=== PATIENT | female | born 1990 | race Hispanic/Latino ===

== ENCOUNTER 2017-04-14 10:11 | Emergency (ER) | payer OTHER ==
[2017-04-14 10:32] LABS: Bilirubin Negative (Negative); Blood, Urine Negative (Negative); Clarity CLEAR (Clear); Glucose, Urine (Dipstick) Negative (Negative); Leukocyte Negative (Negative); Nitrite Negative (Negative); Protein, Urine (Dipstick) Trace mg/dL (Neg-Trace); pH, Urine 6.5 (5.0-9.0)
[2017-04-14 10:43] LABS: #Monocytes 1.1 thou/uL (0.11-0.59); #Neutrophils 7.8 thou/uL (1.40-6.50); %Basophils 0.1 % (0.0-1.0); %Eosinophils 0.3 % (0.0-10.0); %Monocytes 10.8 % (0.0-10.0); %Neutrophils 78.8 % (42.0-75.0); Hemoglobin 12.5 g/dL (12.0-16.0); Mean Corpuscular HGB CONC 33.8 g/dL (32.0-36.0); Mean Corpuscular Hemoglobin 34.5 pg (27.0-31.0); Mean Platelet Volume 6.9 fL (7.4-10.4); Platelet Count 171 thou/uL (130-400); RBC Distribution Width 11.6 % (11.5-14.5); Red Blood Cell (RBC) Count 3.63 mill/uL (4.20-5.40); White Blood Cell (WBC) Count 9.9 thou/uL (4.8-10.8)
[2017-04-14 10:59] LABS: ALT (SGPT) 15 U/L (8-55); AST (SGOT) 17 U/L (5-34); Albumin 4.3 g/dL (3.5-5.0); Alkaline Phosphatase 41 U/L (40-150); Anion Gap 7 mmol/L (10-20); BUN (Urea Nitrogen) 8 mg/dL (7.0-18.7); Bilirubin, Total 1.4 mg/dL (0.2-1.2); Calc. Creatinine Clearance 0 mL/min (70-130); Calcium 9.3 mg/dL (7.8-10.44); Carbon Dioxide 28 mmol/L (22-29); Chloride 104 mmol/L (98-107); Estimated GFR-MDRD Greater than 90; Globulin 3.1 g/dL (2.4-3.5); Glucose 96 mg/dL (70-105); Protein, Total 7.4 g/dL (6.0-8.3); Sodium 135 mmol/L (136-145)
[2017-04-14] MEDS ORDERED: Ketorolac Tromethamine 30 MG/ML VIAL ONE (11:03)
[2017-04-14 12:09] LABS: BHCG - Serum Negative (NEGATIVE); Pregs Control Background? CLEAR/WHITE (CLR/WHITE); Pregs Control Bar Appear? YES (CONTROL BAR)
--- NOTE | 2017-04-14 12:50 | ULT ---
ULTRASOUND PELVIC ULTRASOUND TRANSVAGINAL DOPPLER DUPLEX: 04/14/2017 HISTORY: Left-sided pelvic pain in a 26-year-old female. TECHNIQUE: Transabdominal transducer used to evaluate intrapelvic contents using the urinary bladder as an acous tic window. Endovaginal transducer used to visualize intrapelvic contents in greater detail. Color fl ow Doppler and Pulsed Doppler spectral waveform analysis of ovaries. FINDINGS: Uterus: 7.5 x 3 x 4 cm Endometrial stripe: 0.8 cm (8 mm) Right ovary: 2 x 3.5 x 2 cm Left ovary: 5 x 2.5 x 2 cm Uterine leiomyoma (fibroid): None. Blood flow in both ovaries: Present. Ovarian cyst (defined as 2 cm or greater): 2 cm left ovarian slightly exophytic cyst. Free fluid in the cul-de-sac: None. IMPRESSION: A 2 cm left ovarian cyst. KENNA Posadas POS: [facility]
[2017-04-19 20:07] LABS: Chlamydia by PCR Not Detected (NotDetected); GC by PCR Not Detected (NotDetected)
== END 2017-04-14 13:43 | disposition home or self-care (01) ==
LOC: ERS 10:11
DX: N83.202 Unspecified ovarian cyst, left side (principal)
CPT/HCPCS: 36415; 76856; 80053; 81003; 84703; 85025; 87480; 87491; 87510; 87591; 87660; 96374; J1885

== ENCOUNTER 2017-04-28 20:12 | Inpatient (IN) | payer OTHER ==
[~2017-04-28 20:12] MED LIST: Heparin 1,000 UNITS/ML VIAL ONE; ISOVUE-370 76%-LOCM 1 ML ONE; Iopamidol 370 76% 50 ML VIAL FS ONE
[2017-04-28] MEDS ORDERED: Acetaminophen 500 MG TAB ONE (20:49)
[2017-04-28 20:50] LABS: Bilirubin Negative (Negative); Blood, Urine Large (Negative); Clarity CLEAR (Clear); Glucose, Urine (Dipstick) Negative (Negative); Leukocyte Negative (Negative); Nitrite Negative (Negative); Protein, Urine (Dipstick) 30 mg/dL (Neg-Trace); Specific Gravity, Urine 1.012 (1.002-1.036); pH, Urine 8.5 (5.0-9.0)
[2017-04-28 20:52] LABS: Bacteria/HPF Rare-Few HPF (None Seen); Hyaline Casts/LPF 0-3 HYALINE CAST LPF (0-3 Hyaline)
[2017-04-28 21:20] LABS: #Eosinphils 0.1 thou/uL (0.0-0.7); #Lymphocytes 0.9 thou/uL (1.20-3.40); #Monocytes 0.9 thou/uL (0.11-0.59); #Neutrophils 12.5 thou/uL (1.40-6.50); %Basophils 0.1 % (0.0-1.0); %Lymphocytes 5.9 % (21.0-51.0); %Monocytes 6.2 % (0.0-10.0); %Neutrophils 86.7 % (42.0-75.0); Hemoglobin 10.6 g/dL (12.0-16.0); Mean Corpuscular HGB CONC 34.1 g/dL (32.0-36.0); Mean Corpuscular Hemoglobin 33.8 pg (27.0-31.0); Mean Corpuscular Volume 99.4 fl (81.0-99.0); Mean Platelet Volume 5.7 fL (7.4-10.4); Platelet Count 469 thou/uL (130-400); RBC Distribution Width 12.3 % (11.5-14.5); Red Blood Cell (RBC) Count 3.13 mill/uL (4.20-5.40); White Blood Cell (WBC) Count 14.4 thou/uL (4.8-10.8)
[2017-04-28 21:42] LABS: ALT (SGPT) 14 U/L (8-55); AST (SGOT) 10 U/L (5-34); Alkaline Phosphatase 95 U/L (40-150); Anion Gap 13 mmol/L (10-20); BUN (Urea Nitrogen) 8 mg/dL (7.0-18.7); Bilirubin, Total 0.6 mg/dL (0.2-1.2); CK (CPK) 14 U/L (29-168); Calc. Creatinine Clearance 0 mL/min (70-130); Calcium 8.5 mg/dL (7.8-10.44); Carbon Dioxide 25 mmol/L (22-29); Chloride 101 mmol/L (98-107); Estimated GFR-MDRD Greater than 90; Glucose 104 mg/dL (70-105); Lipase 12 U/L (8-78); Potassium 3.7 mmol/L (3.5-5.1); Sodium 135 mmol/L (136-145)
[2017-04-28 21:49] LABS: Pregnancy Test - Urine (BHCG) Negative (Negative); Pregu Control Background? CLEAR/WHITE (CLR/WHITE); Pregu Control Bar Appear? YES (CONTROL BAR); Specific Gravity 1.012 (1.002-1.036)
[2017-04-28] MEDS ORDERED: Ondansetron HCl/PF 4 MG/2 ML Vial ONE (22:40)
[2017-04-28] MEDS ORDERED: Morphine 2 MG/ML SYRINGE ONE (22:40)
[2017-04-28] MEDS ORDERED: Meropenem 1 GM in Sterile Water 20 ML SLOW IVP SCH (23:00)
[2017-04-28] MEDS ORDERED: Ondansetron HCl/PF 4 MG/2 ML Vial IVP PRN (23:43)
[2017-04-28] MEDS ORDERED: Ondansetron ODT 4 MG TAB SL PRN (23:43)
--- NOTE | 2017-04-28 23:45 | CT ---
CT ABDOMEN AND PELVIS WITHOUT CONTRAST: 04/28/17 HISTORY: Pain and fever. COMPARISON: Pelvic ultrasound 04/14/17. FINDINGS: There is some low grade edema in the left lung base. Moderate sized pericardial effusion. There are r etroperitoneal likely fluid collections along the posterior left perirenal space posterior to the spl een as well as posterior to the left pericolic gutter extending down to the pelvis. There is moderate volume free fluid within the pelvis. There appears to be prior appendectomy. There are numerous enlarged periaortic retroperitoneal lymph nodes. Evaluation of the left ureter is limited due to the multiple lobulated fluid collections. Overall the collection measures 9.5 x 9 x al most 20 cm (trans x AP x CC). The perinephric fat appears relatively well preserved. The left adrenal gland is nodular. Right adrenal gland is unremarkable. There is some reactive thickening of the desc ending colon. IMPRESSION: Extensive retroperitoneal fluid collections along the left posterior perirenal space and posterior to the left pericolic gutter measuring approximately 10 x 8.5 x almost 20 cm. There is extensive adenop athy along the periaortic region. Differential includes abscess formation of unknown origin. Urinoma is also a possibility if there is ureteral injury or if patient has a stone which has caused a urete ral rupture. Retroperitoneal fasciitis is also a possibility as this does involve the left iliopsoas muscle. No evidence of osteomyelitis/discitis. Code MARIAH Stock, 10:25 p.m. POS: [facility]
[2017-04-28] MEDS ORDERED: Morphine 2 MG/ML SYRINGE SLOW IVP PRN (23:49)
[2017-04-29 00:34] VITALS: BMI 26.7
[2017-04-29] MEDS: Acetaminophen 1,000 MG in Premix Bag 1 BAG IVPB PRN ×2 (00:57→06:25)
[2017-04-29] MEDS: Sodium Chloride 0.9% 1,000 ML IV SCH ×2 (01:04→05:26)
[2017-04-29] MEDS ORDERED: Meropenem 1 GM in Sterile Water 20 ML SLOW IVP SCH (08:00)
--- NOTE | 2017-04-29 08:26 | CT ---
PRELIMINARY REPORT/[facility]/EMERGENCY AFTER HOURS PROCEDURE: EXAM: CT Abdomen and Pelvis With Intravenous Contrast CLINICAL HISTORY: 26 years old, female; Pain; Abdominal pain; Generalized; Patient HX: 26f presents with left sided fla nk pain and fever. Patient reports pain x 17 days that started on the left flank and radiates towards the front. She also reports tactile fever x 17 days, with fever in the ed of 101.3. Denies dysuria. Denies nausea and vomiting. Denies , as she is currently incarcerated. HX of ovarian cyst. TECHNIQUE: Axial computed tomography images of the abdomen and pelvis with intravenous contrast. All CT scans at this facility use one or more dose reduction techniques, viz.: automated exposure control; ma/kV adj ustment per patient size (including targeted exams where dose is matched to indication; i.e. head); or iterative reconstruction technique. Coronal reformatted images were created and reviewed. CONTRAST: 100 mL of ISOVUE 370 administered intravenously. COMPARISON: No relevant prior studies available. FINDINGS: Lower thorax: Small pericardial effusion. ABDOMEN: Liver: No acute findings. No mass. Gallbladder and bile ducts: No calcified stones. No biliary dilation. Distended gallbladder. Pancreas: No acute findings. No ductal dilation. No mass. Spleen: No acute findings. No mass. Adrenals: No mass. Kidneys and ureters: Significantly large multiloculated left perirenal and retroperitoneal collection s, slightly higher than simple fluid density, mostly posterior and inferior to the left kidney, exten ding to the lower left hemiabdomen and pelvis. Left kidney is displaced anteriorly. Otherwise left ki dney is unremarkable. No hydronephrosis. Unremarkable right kidney. Stomach and bowel: Displaced bowel loops to the right. Diverticulosis. No evidence of bowel obstructi on. Appendix: No findings to suggest acute appendicitis. PELVIS: Bladder: No acute findings. No mass. Reproductive: No acute findings. ABDOMEN and PELVIS: Intraperitoneal space: Mild pelvic fluid. No free air. Bones/joints: No acute fracture. Soft tissues: No acute findings. Vasculature: No acute findings. No abdominal aortic aneurysm. Lymph nodes: Prominent left retroperitoneal lymph nodes. IMPRESSION: Significantly large multiloculated left perirenal and retroperitoneal collections described above; di fferential diagnosis includes hematoma, abscess and other etiologies. Findings described above. THIS REPORT CONTAINS FINDINGS THAT MAY BE CRITICAL TO PATIENT CARE. The findings were verbally commun icated via telephone conference with Dr Frazier at 1:08 AM RN ACUTE DIALYSIS on 04/29/2017. The findings were acknowle dged and understood. Thank you for allowing us to participate in the care of your patient. Dictated and Authenticated by: Cash Murphy MD 04/29/2017 1:37 AM Central Time ([place] & [place]) FINAL REPORT CT ABDOMEN AND PELVIS: Multiple axial tomograms obtained through the abdomen and pelvis with IV enhancement and with oral co ntrast. FINDINGS: There are multiloculated fluid dense collections in the left retroperitoneum in the left pararenal sp betzaida predominantly posterior and inferior to the left kidney with some extension into the deep pelvis. These findings were described on the preliminary report and I am in agreement. Not mentioned on the preliminary report is evidence of a small pericardial effusion. I am in agreement with the preliminary report. POS: [facility]
[2017-04-29 08:45] LABS: INR-International Normal Ratio 1.4; PTT 40.5 SEC (22.9-36.1); Prothrombin Time 17.4 SEC (12.0-14.7)
[2017-04-29] MEDS ORDERED: Heparin 1,000 UNITS/ML VIAL ONE (09:00)
[2017-04-29] MEDS ORDERED: Dextrose 50% Abboject 50 ML SYRINGE SLOW IVP PRN (10:13)
[2017-04-29] MEDS ORDERED: Dextrose 5% in Water 1,000 ML IV PRN (10:13)
[2017-04-29] MEDS ORDERED: Morphine 2 MG/ML SYRINGE IVP PRN (10:13)
[2017-04-29] MEDS ORDERED: Lactated Ringer's 1,000 ML IV SCH (10:15)
[2017-04-29] MEDS ORDERED: traMADol HCl 50 MG TAB PO PRN ×2 (10:32)
--- NOTE | 2017-04-29 10:56 | HP ---
HISTORY OF PRESENT ILLNESS: Maira Rivera is a 26-year-old female, incarcerated, due to be released this year, incarcerated for 3.5 years. She is from [place]. She is 2, para 2. Rep orts past history of laparoscopic appendectomy and laparoscopic treatment of ectopic when s he was 20 years of age, but otherwise has no significant past surgical history. She, for the past 17 days, has experienced left flank lateral abdominal pain, fevers to 102 degrees. She has been treate d with oral antibiotics in the detention. She was brought to the emergency room last night. CAT scan o f abdomen and pelvis revealed a very large retroperitoneal left fluid collection, perhaps multi-locul ated prominent left retroperitoneal nodes, left kidney displaced anteriorly, otherwise unremarkable. Multiloculated left perirenal or retroperitoneal collections, measuring up to 20 cm. The patient's urinalysis is essentially unremarkable except for large amount of blood on dipstick, nitrite is negat jonna. Urine test negative. Coagulation studies are normal. Liver function tests are caridad l. White count is 14 and hemoglobin 10.6. She has been placed on meropenem and been afebrile since she has been here. ALLERGIES: None. TOBACCO: None. ALCOHOL: None. MEDICATIONS: Antibiotics, type-unknown, oral for several days. MEDICATIONS: Motrin, also probably taking Bactrim. PAST MEDICAL HISTORY: Noncontributory. PAST SURGICAL HISTORY: Ectopic , treated laparoscopically, laparoscopic appendectomy, other godwin noncontributory. REVIEW OF SYSTEMS: Ten-point noncontributory. PHYSICAL EXAMINATION: VITAL SIGNS: 5 feet 3, 151 pounds, 26 BMI, 98 degrees, 67, 14, 85/47. HEAD, EARS, EYES, NOSE, AND THROAT: Unremarkable. LUNGS: Clear to auscultation. CARDIAC: Regular rate and rhythm without murmur or gallop. ABDOMEN: Soft. Mild tenderness in the left lateral abdomen, otherwise soft, nondistended. EXTREMITIES: Unremarkable. ASSESSMENT AND PLAN: Large left retroperitoneal perinephric and ureteral fluid collection without ab normal kidney or ureter on imaging. Urinalysis reveals some blood in the urine on dipstick. Pregnan cy test is negative. We will plan CT-guided drainage of this fluid collection and discuss with Urol[facility] gy their thoughts, perhaps consult them pending that discussion. Continue meropenem.
[2017-04-29] MEDS ORDERED: Midazolam HCl 2 mg/2 ml Vial ONE (13:17)
[2017-04-29] MEDS ORDERED: Sodium Bicarbonate 2.4 MEQ/5 ML ONE (13:17)
[2017-04-29] MEDS ORDERED: Fentanyl 100 MCG/2 ML VIAL ONE (13:17)
--- NOTE | 2017-04-29 16:35 | CT ---
CT GUIDED DRAINAGE OF LEFT RETROPERITONEAL FLUID COLLECTION: Indications: Patient presented to the ER last evening with left flank pain. CT abdomen and pelvis rev ealed multiloculated fluid dense collection in the left retroperitoneum, primarily located posterior and inferior to the left kidney, but extending along the posterior margin to the superior portion of the left kidney. Dr. Frazier requested drainage of the large lateral collection. FINDINGS: The largest collection is a lateral collection inferior to the left kidney. This is drained under CT guidance with an 8 Nepali all-purpose pigtail catheter. The catheter was placed in the middle of this collection and 288 cc of purulent material was aspirated. A sample was sent to laboratory for cultur e sensitivity and creatinine. Post procedure CT showed significant reduction in size of the large lat eral collection, however, the other loculated collections remain. The pigtail catheter is in good pos ition within this collection and this catheter was placed to gravity drainage. Conscious sedation: Patient was given 50 micrograms of Fentanyl IV with 1 milligram Versed IV prior t o starting the procedure and after consent was signed. PROCEDURE NOTE: Consent form was signed. Patient was placed supine on the CT table. Axial tomograms were obtained. Th e entry site in the lateral left lower abdomen was chosen. The overlying skin was prepped and draped in a sterile manner. Local anesthesia was administered with Lidocaine and Bicarb. Incision was made a t the site. A 8 Nepali all-purpose catheter was utilized. This catheter was advanced under CT guidanc e. The tip was placed in the midportion of the collection and the needle and trocar were removed afte r the catheter was advanced. The pigtail was formed. 288 cc of purulent material was aspirated. Sample was sent to laboratory. The catheter was suture at the site and sterile dressing was placed. Catheter was placed to gravity d rainage. Patient tolerated the procedure well and there were no problems or complications. POS: [facility]
[2017-04-29 16:39] LABS: BF Color Gray; Clarity Cloudy/Turbid (Clear); Tube # EDTA
[2017-04-29 16:40] LABS: RBC Count-Automated 2400000 /cumm; WBC/NonHematic-Auto 1850 /cumm
[2017-04-29] MEDS: HYDROcodone/Acetaminophen 10/325 mg Tablet PO PRN (17:07)
[2017-04-29] MEDS: Meropenem 2 GM, Admixture Fee 1 EACH in Sodium Chloride 0.9% 100 ML IVPB SCH (20:21)
[2017-04-29] MEDS: Enoxaparin Sodium 40 MG/0.4 ML SYRINGE SC SCH (20:22)
[2017-04-29] MEDS: Famotidine 20 MG TAB PO SCH (20:23)
[2017-04-29] MEDS: Ondansetron ODT 4 MG TAB PO PRN (23:54)
[2017-04-30] MEDS: Acetaminophen 500 MG TAB PO PRN (02:49)
[2017-04-30] MEDS: Meropenem 2 GM, Admixture Fee 1 EACH in Sodium Chloride 0.9% 100 ML IVPB SCH ×2 (04:25→12:31)
[2017-04-30 04:53] LABS: #Eosinphils 0.1 thou/uL (0.0-0.7); #Monocytes 0.8 thou/uL (0.11-0.59); #Neutrophils 7.1 thou/uL (1.40-6.50); %Basophils 0.3 % (0.0-1.0); %Eosinophils 1.4 % (0.0-10.0); %Lymphocytes 10.5 % (21.0-51.0); %Neutrophils 78.7 % (42.0-75.0); Hemoglobin 9.2 g/dL (12.0-16.0); Mean Corpuscular HGB CONC 32.9 g/dL (32.0-36.0); Mean Corpuscular Hemoglobin 33.4 pg (27.0-31.0); Mean Platelet Volume 5.6 fL (7.4-10.4); Platelet Count 407 thou/uL (130-400); RBC Distribution Width 12.2 % (11.5-14.5); Red Blood Cell (RBC) Count 2.75 mill/uL (4.20-5.40)
[2017-04-30 05:22] LABS: HIV (1/2) Antibody/Antigen Non-Reactive (NonReactive); HIV 1/2 INDEX 0.13 S/CO (<1.00)
[2017-04-30] MEDS: HYDROcodone/Acetaminophen 10/325 mg Tablet PO PRN ×3 (06:44→20:53)
[2017-04-30] MEDS: Polyethylene Glycol 3350 17 GM Packet PO SCH (08:20)
[2017-04-30] MEDS: Famotidine 20 MG TAB PO SCH ×2 (08:21→20:54)
--- NOTE | 2017-04-30 11:47 | CON ---
DATE OF CONSULTATION: 04/29/2017 REASON FOR CONSULTATION: Consultation was requested for retroperitoneal abscess. HISTORY OF PRESENT ILLNESS: The patient is a 26-year-old incarcerated female who has had significant left flank pain and fever off and on for 3 weeks. She has been placed on Bactrim, but fever persist ed as did her pain in which she was seen in the emergency room, a CAT scan revealed a significant ret roperitoneal abscess and she was admitted by General Surgery and I was consulted. She reports having multiple urinary tract infections as a child at the ages of 2, 6 and 9 for which she saw her regula r doctor, but does not sound like she saw a urologist and she was told she had a "super thin lining o f the bladder", but no other known urologic history. She has not had trouble with urinary tract infe ctions as an adult. Normally she has frequency q.1-3h. and nocturia x1-2. More recently she has maxwell d nocturia as much as 8-9 times. She has had no prior history of stones. She has not seen any blood in the urine. PAST MEDICAL HISTORY: Insignificant. PAST SURGICAL HISTORY: Includes a laparoscopic appendectomy. PAST SYSTEMS MANAGEMENT CONSULTANT HISTORY: Significant for a laparoscopic removal of an ectopic . She has normal periods and is currently finishing her period. ALLERGIES: None. SOCIAL HISTORY: She does not smoke, drink or use drugs. However, she was incarcerated for dealing d rugs, but denies any specifically IV or other use. MEDICATIONS: Bactrim and Motrin upon admission. FAMILY HISTORY: Father of colon cancer at 52. Mother is alive and healthy. REVIEW OF SYSTEMS: Reveals she had diarrhea today and that is after being given IV antibiotics, but did not have any prior to admission. She has no chest pain, shortness of breath or cough. She has n o trouble with ambulation and related to having some general abdominal pain and left-sided flank pain . PHYSICAL EXAMINATION: VITAL SIGNS: She has been afebrile since admission at 98.6, 108/68, 97% on room air and a heart rate was 87. Her urine output has not been measured. GENERAL: She is alert and oriented and appears comfortable in the bed. She has already received the percutaneous drain that was placed by interventional. She is having some tenderness related to that , but otherwise is comfortable. HEENT: No scleral icterus. NECK: She has no JVD. CARDIOVASCULAR: Regular rate and rhythm without murmurs, gallops or rubs. LUNGS: Clear to auscultation bilaterally. ABDOMEN: Soft, nondistended with minimal left-sided tenderness, no rebound tenderness. She had no r ight costovertebral angle tenderness. EXTREMITIES: No lower extremity edema. SKIN: Without obvious lesions nor diaphoresis. The drain was in place and had a whitish substance with a silva tinge that may have been just from the tubing noted. LABORATORY DATA: Revealed a white count of 14.4 upon admission with anemia of 10.6 and 31.1. Her co agulation showed an INR of 1.4 with a PTT of 40.5. BUN and creatinine were fine at 8 and 0.66. Her urinalysis showed 4-6 WBCs, 4-6 RBCs, rare bacteria and 4-6 squamous cells. Keeping in mind that she has been on Bactrim for an extended time before this was collected and also finishing up her period. The drain had been placed and a total of 288 mL had been aspirated of pus and it showed 1850 RBCs a nd 2.4 million WBCs. Creatinine was only 0.49. CT from 04/28/2017 without contrast reviewed personally revealed a 20 x 9.5 x 9 cm retroperitoneal ab scess. This extended from the superior portion of the kidney all the way down to her pelvic brim; ho wever, it surrounded only the most posterior and lateral portions of the kidney and did not appear to have any sort of direct connection to the kidney and there was no obvious stone or hydronephrosis. The left renal pelvis was mildly dilated compared to the right, but clearly no hydronephrosis or conc erning masses and the bladder was unremarkable. ASSESSMENT AND PLAN: We have a 26-year-old female with a large retroperitoneal abscess without obvio us etiology other than urinary tract infection at this time. She is already status post drainage and on IV antibiotics. I discussed checking an HIV status given the unclear etiology for this abscess a nd unusual infection; however, she has no concerns for this, but is agreeable to having it checked. I also discussed getting better imaging of the urinary tract itself and that once the drain stops put ting out anything for a 24-hour period, then I would repeat a CT scan without and with contrast to ev aluate for renal function and ensure there is no extravasation or obstruction, but at this time the a bscess appears to be purely that as opposed to a urinoma. I reviewed all of this with the patient an d I agree with the drainage and IV antibiotics and hopefully a culture from the drain will give us a specific organism. I will follow along with you.
[2017-04-30] MEDS: Ondansetron ODT 4 MG TAB PO PRN ×2 (14:37→20:53)
--- NOTE | 2017-04-30 15:42 | PRG ---
DATE OF SERVICE: 04/30/2017 SUBJECTIVE: The patient had significant pain overnight as her IV pain medicine was held for a low bl ood pressure. She is not sure whether she has any oral pain medicine prescribed and so we will check on this. This probably better for pain management as it would last longer than the IV pain medicine . Other than that, she has done well overnight and has no complaints. OBJECTIVE: VITAL SIGNS: She has been afebrile with T-max 98.1, blood pressure currently 96/58, heart rate 62, 9 6% on room air. She has been going to the toilet and then her drain was only measured to put out 20, which is usually consistent with just her irrigation of the tubing. LABORATORY DATA: Revealed a white count has come down to 9.0 and the drain culture shows gram positi ve cocci. ASSESSMENT: A 26-year-old female with large retroperitoneal abscess on IV antibiotics with a drain t hat is putting out minimal. If it still does not put out anything significant today, than I would re peat a CT scan with contrast tomorrow to better evaluate her anatomy. Continue IV antibiotics and hope that there is an organism with sensitivities that we can help better tailor her antibiotic ther apy.
--- NOTE | 2017-04-30 17:29 | CON ---
DATE OF CONSULTATION: 04/30/2017 REASON FOR CONSULTATION: Retroperitoneal abscess. HISTORY OF PRESENT ILLNESS: A 26-year-old patient first admission to this hospital, who has no significant past medical history. Patient is then incarcerated in a federal halfway for some drug charge. She is apparently was in her usual state until about 17 days prior to admission when she developed progressively worsening left flank pain. Subsequently, she noticed fever and general malaise. She was sent to the emergency room and she was initially seen here on 04/14/2017, patient described here is lower abdominal pain. Patient states that the pain she had described as in the left flank area. She denied any headaches, dyspnea, or cough, no sputum production. No skin lesions, no joint symptoms and no genitourinary symptoms. Specifically, no dysuria or increased urinary frequency. Patient had pelvic ultrasound only, which showed ovarian cyst. She was discharged with ibuprofen only. No other tests have been done. She had a white cell count of 9.9 and platelet count of 171. The differential showed predominance of mature neutrophils of 78%. Patient in the halfway has developed persistence of the symptoms and progression with now pretty much daily fevers was given Bactrim and then had some urinary sample submitted, was told that she had a urinary infection, although we do not have any documentation of that then she was given corticosteroids, when Bactrim did not work. She gets basically a course of Medrol Dosepak and then she eventually was sent back to the emergency room. At this time, the pain has been identified is in the flank by the emergency room physician. She had fever identified at this time, in the emergency room. An abdominal pelvis CT, which showed the loculated fluid collection in the retroperitoneal region. The scan demonstrated extensive retroperitoneal fluid collections along the left posterior perirenal space and posterior to the left pericolic gutter measuring 10 x 8 x 20 cm, extensive adenopathy along the periaortic region. Repeat another report it is consistent with the initial findings by the virtual radiologist and the patient had a retroperitoneal abscess drainage by Dr. Johnson and about 288 mL of purulent material aspirated. Cultures thus far have identified Staphylococcus aureus, but urine cultures are negative. Currently, Mr. Rivera is feeling better. She has a drain in place. REVIEW OF SYSTEMS: Ten point review of systems is negative other than the flank pain which is less in intensity than before. PAST MEDICAL HISTORY: She is G2, P2. She had urinary infections, which was an adolescent and no other medical history of note. ALLERGIES: No known drug allergies significance. PAST SURGICAL HISTORY: Ectopic treated laparoscopically and appendectomy in the past. She is from [place], [place]. She is in the halfway now for 3-1/2 years on a drug charge and smokes cigarettes intermittently. Never used drugs intravenously. PHYSICAL EXAMINATION: VITAL SIGNS: T-max 98.6, blood pressure 97/64, pulse 61, respirations 16, O2 sat 100%. SKIN: Shows a tattoo in the left ankle. She has a peripheral IV access left antecubital fossa. No lymphadenopathy. HEENT: Ocular movements conjugate. Oral cavity normal. Numerous teeth in place in excellent shape. NECK: Supple, jugular vein distention. LUNGS: With symmetric clear breath sounds. HEART: S1, S2, regular rate. No S3, S4. No murmurs. No spine tenderness. ABDOMEN: With slight tenderness left flank region. No ascites. No organomegaly, no bladder distention. EXTREMITIES: No joint inflammatory activity. NEUROLOGIC: Nonfocal, no edema. Pulses 1+ and Dorsalis pedis. Cognitive function appears to be intact. LABORATORY DATA: White cell count 9.0, hemoglobin 9.2, MCV 102, platelets 407, 78% neutrophils. INR 1.4 and chemistry is remarkable for albumin 3.0. Sodium 135, otherwise within normal limits. She had a vaginitis screen from cervix, which was negative. ASSESSMENT: Retroperitoneal abscess left side, wrapping around the left kidney in the paracolic gutter left side, multiple areas of lymphadenopathy with likely lymphadenitis in the retroperitoneal area. This is secondary to Staphylococcus aureus. Pending susceptibility studies. DISCUSSION: The differential diagnosis includes necrotizing lymphadenitis with spread into the left retroperitoneal space. This is the more likely scenario. Pyomyositis is less likely and there is no evidence to suggest a spinal infection. There is no evidence to suggest pyelonephritis either. I think that is not likely. It should be treated with continuation of drainage in the antimicrobial therapy. PICC line placement, probably switch her to once daily. Rocephin, if it is MSSA or vancomycin, if it is MRSA. Duration of therapy anywhere from 4 to 6 weeks depending on clinical and radiological progress. The drain to be removed once there is reduction in size of the collection. Eventually, she can be transitioned to oral therapy. She may need more than 2 months of antimicrobial therapy altogether including the IV and the oral segments of the treatment. JUAN LUIS
[2017-04-30] MEDS: cefTRIAXone\\ROCEPHIN 2 GM in Sodium Chloride 0.9% 100 ML IVPB SCH (18:28)
--- NOTE | 2017-04-30 19:09 | PRG ---
DATE OF SERVICE: 04/30/2017 SUBJECTIVE: Ms. Rievra is feeling better. Her left leg pain is markedly improved since percutane ous drainage of her 20 cm left retroperitoneal abscess. She remains afebrile in the hospital, 97.6 d egrees, heart rate 61, 97/64. Her white count is 9, hemoglobin 9.2. Basic metabolic profile was nor mal. Cultures today revealed Staph aureus, susceptibility pending. Dr. Garcia has seen her and dodson ed her antibiotics to ceftriaxone and vancomycin. Dr. Garcia has seen her. Dr. Garcia from Urology did not think there is any relationship with this abscess to the urinary tract. As per our plan, we will plan to repeat a CAT scan with and without contrast to evaluate her renal function. Dr. Garcia t kyraught the most likely etiology was pyomyositis, felt that she need a PICC line with 4-6 weeks of int ravenous antibiotics. HIV is nonreactive. OBJECTIVE: LUNGS: Clear to auscultation. CARDIAC: Regular rate and rhythm without murmur or gallop. ABDOMEN: Soft and nontender. ASSESSMENT AND PLAN: Retroperitoneal abscess, left. Continue intravenous antibiotics and drainage. She has not had much drainage out of the drainage catheter. Nurse states that they are irrigating 3 times a day with saline. We will plan to repeat her CAT scan in the next few days. We will ask Rad iology to place a PICC line tomorrow.
[2017-04-30] MEDS: Vancomycin HCl 1.25 GM in Sodium Chloride 0.9% 250 ML 250 ML IVPB SCH (19:34)
[2017-04-30] MEDS: Enoxaparin Sodium 40 MG/0.4 ML SYRINGE SC SCH (20:54)
[2017-05-01] MEDS: Acetaminophen 500 MG TAB PO PRN (04:01)
[2017-05-01] MEDS: Vancomycin HCl 1.25 GM in Sodium Chloride 0.9% 250 ML 250 ML IVPB SCH ×2 (06:10→18:15)
[2017-05-01] MEDS: Famotidine 20 MG TAB PO SCH ×2 (09:23→21:46)
[2017-05-01] MEDS: Polyethylene Glycol 3350 17 GM Packet PO SCH (09:23)
--- NOTE | 2017-05-01 09:47 | CT ---
CT ABDOMEN AND PELVIS PERFORMED WITH INTRAVENOUS CONTRAST ENHANCEMENT: HISTORY: The patient is status post drainage of a retroperitoneal abscess with catheter on 04/29/2017. This i s a followup. The patient complains of pain at the drainage site. FINDINGS: ABDOMEN: There is atelectatic change in the right base and more pronounced atelectasis or some minim al infiltrate of the left lower lobe. Small left pleural effusion is seen. The liver, spleen, and pancreas regions are unremarkable. The gallbladder is distended. The right and left adrenal glands and the right and left kidneys are normal in size and not obstructe d. A left-sided multiloculated retroperitoneal abscess is seen. There is a crescentic-shaped fluid collection, which displaces the left kidney anteriorly. A drainage catheter is in the main portion o f this collection. It appears to be in good position. The size of the collection is slightly reduce d, as compared to the prior exam. PELVIS: Fluid is seen in the cul-de-sac region, similar to the previous examination. No new process . IMPRESSION: Left-sided drainage catheter in place. The catheter does appear to be within the largest portion of what appears to be a multiloculated retroperitoneal collection. The size of the collection is fairly minimally reduced, as compared to the prior exam. No new process identified. POS: ROSS
--- NOTE | 2017-05-01 11:11 | SPC ---
ULTRASOUND AND FLUOROSCOPIC GUIDED PICC LINE PLACEMENT: HISTORY: Abscess formation. COMPARISON: CT same date. FINDINGS: The patient was brought to the interventional suite. All questions were answered. Informed consent was already obtained. Timeout was performed. The left arm was prepped and draped in normal sterile fashion. Using ultrasound guidance, the left cephalic vein was accessed. Using fluoroscopic guidance with a m icropuncture set over a wire through a peelaway sheath, a single lumen PICC was placed. The patient tolerated the procedure well. No complication. IMPRESSION: Technically successful PICC line placement. POS: MARY
[2017-05-01] MEDS: Ondansetron ODT 4 MG TAB PO PRN ×2 (12:33→18:15)
[2017-05-01] MEDS ORDERED: ISOVUE-370 76%-LOCM 1 ML ONE (13:38)
[2017-05-01] MEDS ORDERED: Iopamidol 300 61% 50 ML VIAL FS ONE (13:55)
[2017-05-01] MEDS ORDERED: Midazolam HCl 2 mg/2 ml Vial ONE (14:02)
--- NOTE | 2017-05-01 14:03 | PRG ---
DATE OF SERVICE: 05/01/2017 SUBJECTIVE: The patient is doing well. She took some pain medicine just recently and feels a little nauseous since she took it on an empty stomach. Otherwise, her pain has been well controlled. OBJECTIVE: She has been afebrile without any concerns from a vital standpoint. Her drain put out mi nimal basically just with being flushed. She appears well, but sleepy. CT scan with dye diluted with contrast and delayed images was reviewed personally and revealed the ab scess itself is overall diminished in global dimensions, but still significantly pervasive from the s uperior posterior kidney wrapping around to the anterior rectus muscle with the drain in place and wh at appears to be a good position. There was no hydronephrosis, masses or extravasation of urine in t he bladder. ASSESSMENT AND PLAN: We have a 26-year-old female with a large retroperitoneal abscess with Infectio us Disease saying it is most likely pyomyositis and warrants 4-6 weeks of IV antibiotics. She has al ready received a PICC line for this and the culture is positive for methicillin-resistant Staphylococ cus aureus and they will tailor antibiotics according to their expertise. I discussed with Dr. Tia sanchez whether or not the drain would be removed, repositioned or remain and he will discuss it further [facility]. At this point if there is any acute urologic intervention needed I will be out of town and the covering service will need to address it, but it does not appear that there i s anything actively requiring urologic care in the next few days. Certainly if this changes please l et us know.
[2017-05-01] MEDS: cefTRIAXone\\ROCEPHIN 2 GM in Sodium Chloride 0.9% 100 ML IVPB SCH (17:13)
--- NOTE | 2017-05-01 17:23 | SPC ---
PERITONEAL ABSCESS DRAINAGE CATHETER REPLACEMENT AND UPSIZING 05/01/17 HISTORY: Left abdominal abscess collection with 8 Estonian drainage catheter in place which is no longer drainin g. Recent CT shows catheter in appropriate positioning. Evaluation of the catheter was requested. TECHNIQUE: The procedure including risks and complications were explained to the patient and informed consent wa s obtained. The patient was placed on the angiography table in the supine position. A sterile contras t filled syringe was connected to the drainage catheter and injection of the catheter demonstrates th e catheter is in the collection. Approximately 20 mL of purulent fluid was aspirated from the cathete r, but no additional fluid was able to be aspirated. In addition, there was air leak within the hub o f the catheter suggesting that there was dysfunction of the catheter. As the result, exchange of the catheter was recommended. The catheter and surrounding area were meticulously prepped and draped in the usual sterile fashion. Patient was administered 1 mg of versed prior to exchange of the catheter. The catheter was cut and exchanged over a 0.035 inch Amplatz guidewire for a 10 [place] tissue dilator followed by placement of a 10 [place] loop all purpose drainage catheter. Contrast injection aga in confirms placement of the catheter in similar location. Approximately 140 mL of purulent fluid was aspirated. The catheter was flushed and placed to gravity drainage. Catheter was sutured in place ut ilizing 2-0 Ethilon suture material. Dry sterile dressing was placed. Patient tolerated the procedure well without immediate complication. IMPRESSION: Technically successful left abdominal abscess drainage catheter replacement and upsizing with 10 Fren ch [place] loop all purpose drainage catheter placed. A total volume of 160 mL of purulent fluid was asp irated. POS: ROSS
--- NOTE | 2017-05-01 18:01 | PRG ---
DATE OF SERVICE: 05/01/2017 SUBJECTIVE: She is doing well today. She had a repeat CAT scan today demonstrating the drainage cat heter to be in the proper position. The size is reduced relative to the past CAT scans. There is no evidence of urological involvement or problems. The concern is she has not had much drainage of her catheter. She went back down to Interventional Radiology and had upsize in the catheter to provide better drainage, 160 mL of purulent material was aspirated. The patient has had a PICC line placed f or long-term IV antibiotics. Cultures have revealed MRSA and Dr. Garcia had adjusted her antibiotics. OBJECTIVE: VITAL SIGNS: She is afebrile. Heart rate is 79, 97.8 degrees, 105/66. ABDOMEN: Soft, nontender. She is tolerating her diet. PLAN: Plan is to continue intravenous antibiotics and repeat her CAT scan next week to view the absc ess progress.
[2017-05-01] MEDS: HYDROcodone/Acetaminophen 10/325 mg Tablet PO PRN (18:15)
[2017-05-01] MEDS: Enoxaparin Sodium 40 MG/0.4 ML SYRINGE SC SCH (21:45)
[2017-05-02] MEDS: HYDROcodone/Acetaminophen 10/325 mg Tablet PO PRN ×3 (01:21→20:31)
[2017-05-02] MEDS: Ondansetron ODT 4 MG TAB PO PRN ×3 (01:22→20:30)
[2017-05-02] MEDS: Vancomycin HCl 1.25 GM in Sodium Chloride 0.9% 250 ML 250 ML IVPB SCH ×2 (05:42→18:56)
[2017-05-02 06:20] LABS: Vancomycin, Trough 10.1 ug/mL
[2017-05-02] MEDS: Polyethylene Glycol 3350 17 GM Packet PO SCH (08:35)
[2017-05-02] MEDS: Famotidine 20 MG TAB PO SCH ×2 (08:35→20:30)
--- NOTE | 2017-05-02 15:42 | PRG ---
DATE OF SERVICE: 05/02/2017 SUBJECTIVE: Ms. Rivera is doing well today. She has not had any fever. She was tolerating her d iet yesterday. The drainage tube was repositioned by Interventional Radiology and as a result, it is draining much better. It has had 180 mL out in the last 24 hours whereas previously 31 mL was out. She has purulent discharge. Cultures MRSA. OBJECTIVE: LUNGS: Clear to auscultation. CARDIAC: Regular rate and rhythm. No murmur or gallop. ABDOMEN: Soft, nontender. Doing well postoperatively, has a PICC line for intravenous antibiotics under the direction by Dr. Ryan. We will repeat her CAT scan next week. Currently, I expect this problem to resolve with nonope rative management. She will need outpatient followup CAT scans to monitor the true drainage progress ion. I anticipate she could go home sometime next week with outpatient intravenous antibiotics and c atheter drainage and irrigations. We will ask the nurses to teach her how to irrigate her tube.
[2017-05-02] MEDS: cefTRIAXone\\ROCEPHIN 2 GM in Sodium Chloride 0.9% 100 ML IVPB SCH (17:05)
[2017-05-02] MEDS: Enoxaparin Sodium 40 MG/0.4 ML SYRINGE SC SCH (20:30)
[2017-05-03] MEDS: Vancomycin HCl 1.25 GM in Sodium Chloride 0.9% 250 ML 250 ML IVPB SCH ×2 (06:03→18:53)
[2017-05-03] MEDS: HYDROcodone/Acetaminophen 10/325 mg Tablet PO PRN ×3 (08:36→23:19)
[2017-05-03] MEDS: Polyethylene Glycol 3350 17 GM Packet PO SCH (08:36)
[2017-05-03] MEDS: Famotidine 20 MG TAB PO SCH ×2 (08:36→21:55)
--- NOTE | 2017-05-03 12:24 | PRG ---
DATE OF SERVICE: 05/03/2017 Ms. Rivera is doing well today. She is afebrile, 98.5 degrees, 96/60. No laboratories today. Cu ltures MRSA. Drainage from her CT-guided drain 100 mL for the past 24 hours. Overall, the patient i s doing well. Continue to teach patient drain management. She has a PICC line for intravenous antib iotic administration as an outpatient. Plan, repeating a CAT scan early this upcoming week and yu lemus could be discharged back to [facility] or medical facilities in mid week. She will need outpatient [facility] CAT scans to follow up the abscess resolution.
--- NOTE | 2017-05-03 15:53 | PRG ---
DATE OF SERVICE: 05/03/2017 HISTORY: Ms. Rivera has noticed increasing drainage, less pain. She is constipated. No respirat ory symptoms, no genitourinary symptoms. PHYSICAL EXAMINATION: VITAL SIGNS: Normal. She has been afebrile. LUNGS: Clear to auscultation and percussion. HEART: S1, S2, regular rate. ABDOMEN: The drain in the left side of the abdomen with purulent drainage noted. The output has inc reased to 180 mL today compared with 20 and 31 previously. ASSESSMENT AND DISCUSSION: Retroperitoneal abscess left side, wrapping around left kidney with areas of lymphadenitis/lymphadenopathy. This is secondary to methicillin-resistant Staphylococcus aureus . The patient is to continue on protracted IV vancomycin plus drainage. Follow up imaging studies a nd then remove the drain whenever there is reduction in the size of the abscess. PICC line in place and follow up in the outpatient setting.
[2017-05-03] MEDS: cefTRIAXone\\ROCEPHIN 2 GM in Sodium Chloride 0.9% 100 ML IVPB SCH (17:40)
[2017-05-03] MEDS: Enoxaparin Sodium 40 MG/0.4 ML SYRINGE SC SCH (21:55)
[2017-05-04] MEDS: Vancomycin HCl 1.25 GM in Sodium Chloride 0.9% 250 ML 250 ML IVPB SCH ×2 (05:53→17:31)
[2017-05-04] MEDS: Famotidine 20 MG TAB PO SCH ×2 (08:25→20:47)
[2017-05-04] MEDS: HYDROcodone/Acetaminophen 10/325 mg Tablet PO PRN ×3 (08:26→20:50)
[2017-05-04] MEDS: Polyethylene Glycol 3350 17 GM Packet PO SCH (08:26)
[2017-05-04] MEDS ORDERED: Magnesium Citrate 300 ML BOT PO SCH (14:45)
[2017-05-04] MEDS: cefTRIAXone\\ROCEPHIN 2 GM in Sodium Chloride 0.9% 100 ML IVPB SCH (16:16)
[2017-05-04] MEDS: Enoxaparin Sodium 40 MG/0.4 ML SYRINGE SC SCH (20:47)
[2017-05-05 05:52] LABS: Vancomycin, Trough 12.7 ug/mL
[2017-05-05] MEDS: Vancomycin HCl 1.25 GM in Sodium Chloride 0.9% 250 ML 250 ML IVPB SCH ×2 (05:55→18:55)
--- NOTE | 2017-05-05 06:08 | PRG ---
DATE OF SERVICE: 05/04/2017 Ms. Rivera is doing well today. She has no complaints. She is afebrile. Drain is 80 mL for 24 h ours. IV antibiotics have been arranged as an outpatient. Plan would be to discharge her home tomor row after CAT scan. She could then follow up with another CAT scan next week. She should flush her drain tubing twice a day. She could repeat her CAT scan next week and see her in the office to check her status on her drainage.
[2017-05-05] MEDS: Famotidine 20 MG TAB PO SCH ×2 (08:47→20:22)
[2017-05-05] MEDS: Polyethylene Glycol 3350 17 GM Packet PO SCH (08:48)
--- NOTE | 2017-05-05 09:27 | CT ---
CT ABDOMEN AND PELVIS NONCONTRAST: History: Abdominal abscess with drain. Decreasing output. Comparison: 05-01-17 FINDINGS: Linear atelectasis is present at the lung bases. Each renal collecting system, ureter, and urinary bl adder are decompressed without stone apparent. Lack of contrast limits evaluation for other abnormalities. Phleboliths are apparent within the abdom en and pelvis. Diverticula arise from the colon. Left lateral lower abdominal drain remains in place, coiled just deep to the abdominal wall with no s ignificant residual fluid cavity. Minimal stranding and fluid extend superiorly from the catheter tow ards the superior pole of the left kidney. Minimal free fluid within the dependent portion of the pelvis. IMPRESSION: No significant residual fluid collection remains around the left abdominal percutaneous drain. Cavity is completely decompressed. POS: ROSS
--- NOTE | 2017-05-05 15:05 | ULT ---
VENOUS DUPLEX SONOGRAM LEFT UPPER EXTREMITY: HISTORY: Left arm pain and edema. PICC line. FINDINGS: The left internal jugular vein and subclavian vein, brachial, cephalic, and basilic veins were evalua prashanth. PICC line is seen within the left cephalic vein. Good color and spectral Doppler flow. IMPRESSION: No sonographic evidence of deep vein thrombosis left upper extremity. POS: MARY
[2017-05-05] MEDS: HYDROcodone/Acetaminophen 10/325 mg Tablet PO PRN ×2 (16:03→22:35)
--- NOTE | 2017-05-05 17:02 | PRG ---
DATE OF SERVICE: 05/05/2017 SUBJECTIVE: Patient has developed pain and swelling at the site of the PICC line. The abdomen is no t hurting anymore. No respiratory symptoms, no diarrhea, and she has been afebrile. Other vital sig ns are normal. OBJECTIVE: GENERAL: Awake, alert, oriented. LUNGS: Clear. HEART: S1, S2, regular rate. MUSCULOSKELETAL: Left arm a bit more swollen, but not by much, mildly tender left side, PICC site ap pears normal otherwise. According to the nurse, there has been some problems flushing the PICC line. ABDOMEN: Soft, nontender or maybe mildly tender. LABORATORY DATA: White cell count 9.0, hemoglobin 9.2, platelets 407. Chemistry was not remarkable. Repeat abdomen and pelvis CT showed no residual fluid collection remaining. Vascular ultrasound d emonstrated no evidence of deep vein thrombosis. ASSESSMENT AND DISCUSSION: Retroperitoneal abscess left side, wrapping around the left kidney with a reas of lymphadenitis, lymphadenopathy secondary to methicillin-resistant Staphylococcus aureus. Con tinue protracted IV vancomycin. Drainage has been completed and probably catheter can be removed dis charge planning.
[2017-05-05] MEDS: cefTRIAXone\\ROCEPHIN 2 GM in Sodium Chloride 0.9% 100 ML IVPB SCH (17:32)
--- NOTE | 2017-05-05 18:05 | PRG ---
DATE OF SERVICE: 05/05/2017 Maira Rivera is doing well today. Her CAT scan reveals that her abscess cavity is completely col lapsed. Her output from her drain has diminished and has been irrigated 65 mL in last 24 hours. She has not had a fever. Abdomen is soft and nontender. She does complain, however, her PICC line hurt ing from the insertion site up toward the deltopectoral groove as this is a cephalic vein PICC line. It is tender. It is slightly reddened around the exit site. Dr. Garcia has ordered an ultrasound. There is no evidence of thrombus. Due to the pain from the PICC line, I would recommend that we senthil ve this and replace another PICC line. Unfortunately, this cannot be done today at this late hour an d it will need to be done tomorrow. She can be discharged back to correction tomorrow. She should have a repeat CAT scan next week and follow up in my office after the CAT scan after which time if her shirley inage cavity does not have much out, we can probably remove that drain. Anticipate discharge tomorro w with the drain and she should irrigate the drain twice a day.
[2017-05-05] MEDS: Enoxaparin Sodium 40 MG/0.4 ML SYRINGE SC SCH (20:22)
[2017-05-06] MEDS: Vancomycin HCl 1.25 GM in Sodium Chloride 0.9% 250 ML 250 ML IVPB SCH (05:33)
[2017-05-06] MEDS: Famotidine 20 MG TAB PO SCH (08:03)
[2017-05-06] MEDS: Polyethylene Glycol 3350 17 GM Packet PO SCH (08:03)
[2017-05-06] MEDS: HYDROcodone/Acetaminophen 10/325 mg Tablet PO PRN (08:06)
--- NOTE | 2017-05-06 12:06 | SPC ---
SONOGRAPHIC GUIDED RIGHT UPPER EXTREMITY PICC PLACEMENT: Date: 05/06/17 HISTORY: Abscess. Need for long-term antibiotics. Left arm swelling. FINDINGS: After explaining the procedure and answering all questions, the right upper extremity was prepped and draped in the usual sterile fashion. Sterile technique, buffered local anesthesia, sonographic kojo nce, and a 22 gauge needle were used to carefully access the right basilic vein. Standard technique w as then used to place the tip of a 5 German single lumen PICC so that the tip lies at the level of th e right atrium. The catheter was flushed and secured externally. The patient tolerated the procedure well. The previously placed left upper extremity PICC was removed. The patient was returned in unchan ged condition. Fluoro time = 0.1 minutes. IMPRESSION: Technically successful right upper extremity PICC placement. Catheter is now ready for use. POS: ROSS
[2017-05-06 12:26] VITALS: BP 96/57; TEMP 98.2
--- NOTE | 2017-05-06 13:43 | PRG ---
DATE OF SERVICE: 05/06/2017 Maira Rivera is doing well today. She remains afebrile. Her PICC line has been removed from her left arm and placed in her right arm due to pain. There is redness around the site. Ultrasound did not reveal any DVT. She is on intravenous antibiotics for MRSA abscess, which would cover any infec tion in the arm. She is not having any pain. Drainage from her drain is 45 mL in the last 24 hours. The patient will be discharged to the long-term today. Follow up in my office next week after obtaini ng a CAT scan of the abdomen and pelvis without contrast to follow up her abscess and hopefully her d rain can be removed. Dr. Garcia wants her on intravenous antibiotics for 4-6 weeks and he will see he r in 2-3 weeks. She is on ceftriaxone 2 g daily and vancomycin twice a day. Patient will follow up in my office next week.
--- NOTE | 2017-05-06 13:59 | DIS ---
DATE OF ADMISSION: 04/28/2017 DATE OF DISCHARGE BACK TO LONG-TERM: 05/06/2017 DISCHARGE DIAGNOSES: Large 20 centimeter eft retroperitoneal methicillin-resistant Staphylococcus aureus abscess. Cultures MRSA, currently on vancomycin and ceftriaxone. CONSULTANTS: Dr. Garcia and Dr. Garcia, Urology. PROCEDURES THIS HOSPITALIZATION: 1. CT scan of abdomen and pelvis reveals large abscess. 2. CT guided drainage of large abscess initial drainage catheter drained fairly well, but then stopp ed and there was a residual abscess and Radiology upsized the catheter and manipulated it and it jess rowand much more. 3. Followup CAT scan prior to discharge revealed abscess to be completely collapsed, her drainage ou tput was dropping off daily. On the day of discharge, it was 45 mL in the last 24 hours. She is irr igating her drainage catheter twice a day with saline into her retroperitoneal cavity. The drainage looks mostly the irrigant fluid. The patient at this point, we will continue to irrigate this twice a day as an outpatient. She will keep track of the drainage. Recommendations to the long-term were that she obtain a CAT scan of the abd omen and pelvis without contrast on the day that she sees me in the office before being seen in the [facility] and then we can make a decision as far as removal of the drainage catheter. The patient is deshawn ng discharged back to the long-term with a PICC line. She had initial PICC line in the left cephalic ve in. This was removed due to pain even though ultrasound did not reveal any thrombus, there was some redness around the area and she is having pain from the antecubital area to the deltopectoral groove. This was removed and a right arm basilic vein PICC line placed and she feels much better.
--- NOTE | 2017-05-06 15:57 | SPC ---
PERITONEAL ABSCESS DRAINAGE CATHETER REPLACEMENT AND UPSIZING 05/01/17 HISTORY: Left abdominal abscess collection with 8 [place] Citizen drainage catheter in place which is no longer drainin g. Recent CT shows catheter in appropriate positioning. Evaluation of the catheter was requested. TECHNIQUE: The procedure including risks and complications were explained to the patient and informed consent wa s obtained. The patient was placed on the angiography table in the supine position. A sterile contras t filled syringe was connected to the drainage catheter and injection of the catheter demonstrates th e catheter is in the collection. Approximately 20 mL of purulent fluid was aspirated from the cathete r, but no additional fluid was able to be aspirated. In addition, there was air leak within the hub o f the catheter suggesting that there was dysfunction of the catheter. As the result, exchange of the catheter was recommended. The catheter and surrounding area were meticulously prepped and draped in the usual sterile fashion. Patient was administered 1 mg of versed prior to exchange of the catheter. The catheter was cut and exchanged over a 0.035 inch Amplatz guidewire for a 10 [place] Citizen tissue dilator followed by placement of a 10 [place] Citizen [place] loop all purpose drainage catheter. Contrast injection aga in confirms placement of the catheter in similar location. Approximately 140 mL of purulent fluid was aspirated. The catheter was flushed and placed to gravity drainage. Catheter was sutured in place ut ilizing 2-0 Ethilon suture material. Dry sterile dressing was placed. Patient tolerated the procedure well without immediate complication. IMPRESSION: Technically successful left abdominal abscess drainage catheter replacement and upsizing with 10 Fren ch [place] loop all purpose drainage catheter placed. A total volume of 160 mL of purulent fluid was asp irated.
== END 2017-05-06 15:00 | DRG 373 ==
LOC: ERS 20:12 → EEVIPCON 20:12 → SURG A 22:45
PROVIDERS: ADMIT Specialist; ATTEND Specialist
PROC: 0W9H30Z Drainage of Retroperitoneum with Drainage Device, Percutaneous Approach (ICD-10-PCS; principal; 2017-04-29)
PROC: 0WPHX0Z Removal of Drainage Device from Retroperitoneum, External Approach (ICD-10-PCS; 2017-05-01)
PROC: 0W9H30Z Drainage of Retroperitoneum with Drainage Device, Percutaneous Approach (ICD-10-PCS; 2017-05-01)
PROC: 02H633Z Insertion of Infusion Device into Right Atrium, Percutaneous Approach (ICD-10-PCS; 2017-05-06)
PROC: B2141ZZ Fluoroscopy of Right Heart using Low Osmolar Contrast (ICD-10-PCS; 2017-05-06)
DX: K68.19 Other retroperitoneal abscess (principal); B95.62 Methicillin resistant Staphylococcus aureus infection as the cause of diseases classified elsewhere; L04.8 Acute lymphadenitis of other sites
CPT/HCPCS: 36415; 36569; 49020; 49060; 49406; 49424; 74176; 74177; 74178; 75984; 77012; 80053; 80202; 81003; 81015; 81025; 82550; 82570; 83605; 83690; 85025; 85060; 85610; 85730; 87070; 87077; 87086; 87186; 87205; 87389; 89051; 96361; 96374; 96375; 99152; 99153; A4216; C1729; C1751; J0131; J0696; J1644; J1650; J2185; J2250; J2270; J2405; J3010; J3370; J7050; Q0162